=== PATIENT | male | born 1975 | race Caucasian/White ===

== ENCOUNTER 2018-12-02 15:45 | Inpatient (IN) | payer BC ==
[~2018-12-02] VITALS: Ht 175.3 cm; Wt 86.2 kg
[2018-12-02 19:08] LABS: BASOPHIL % 1.1 % (0-2); PLATELET COUNT 245 x10^3mcL (130-400)
[2018-12-02 19:11] LABS: CALCIUM 8.6 mg/dL (8.5-10.1); CHLORIDE SERUM 108 mmol/L (98-107); CREATININE SERUM 0.9 mg/dL (0.7-1.3); GFR1 > 60 mL/min; GLUCOSE SERUM 87 mg/dL (74-106); POTASSIUM SERUM 3.9 mmol/L (3.5-5.1); SODIUM SERUM 146 mmol/L (136-145)
[2018-12-02 19:15] LABS: ALBUMIN 3.7 g/dL (3.4-5.0); ALKALINE PHOSPHATASE 57 U/L (46-116); ALT/SGPT 43 U/L (16-63); AST/SGOT 41 U/L (15-37); BILIRUBIN TOTAL 0.45 mg/dL (0.20-1.00); MAGNESIUM 2.2 mg/dL (1.8-2.4); TOTAL PROTEIN, SERUM 7.7 g/dL (6.4-8.2)
[2018-12-02 23:54] LABS: UA SPECIFIC GRAVITY >=1.030 (1.005-1.035); microscopic required? YES; urine erythrocyte NEGATIVE (NEGATIVE)
[2018-12-03 00:10] LABS: AMPHETAMINE QUAL UR NONE DETECTED (See below)
[2018-12-03 00:32] LABS: CHOLESTEROL/HDL RATIO 1.8
[2018-12-03 00:51] VITALS: BP 136/97
[2018-12-03 04:26] LABS: BASOPHIL % 0.8 % (0-2); PLATELET COUNT 255 x10^3mcL (130-400)
[2018-12-03 04:27] LABS: RED CELL DISTRIBUTION WIDTH 16.3 % (11.5-14.5)
[2018-12-03 04:38] LABS: CALCIUM 7.8 mg/dL (8.5-10.1); CHLORIDE SERUM 107 mmol/L (98-107); GFR1 > 60 mL/min; GLUCOSE SERUM 92 mg/dL (74-106); POTASSIUM SERUM 3.7 mmol/L (3.5-5.1); SODIUM SERUM 142 mmol/L (136-145)
[2018-12-03 06:04] VITALS: BP 134/92
[2018-12-03 09:34] VITALS: BP 147/82
[2018-12-03 10:56] VITALS: Ht 175.3 cm; Wt 86.2 kg
== END 2018-12-03 11:10 | disposition left against medical advice (07) | DRG 193 ==
LOC: ED 15:45 → DU 23:11
PROVIDERS: Emergency Medicine; General Practice; ADMIT Internal Medicine
DX: J18.1 Lobar pneumonia, unspecified organism (principal); N17.0 Acute kidney failure with tubular necrosis; E87.0 Hyperosmolality and hypernatremia; F10.239 Alcohol dependence with withdrawal, unspecified; F10.229 Alcohol dependence with intoxication, unspecified; E86.0 Dehydration; R74.0 Nonspecific elevation of levels of transaminase and lactic acid dehydrogenase [LDH]; Y90.0 Blood alcohol level of less than 20 mg/100 ml; E78.5 Hyperlipidemia, unspecified; Z53.21 Procedure and treatment not carried out due to patient leaving prior to being seen by health care provider; F17.210 Nicotine dependence, cigarettes, uncomplicated; Z60.2 Problems related to living alone; Z68.28 Body mass index [BMI] 28.0-28.9, adult
CPT/HCPCS: 90658; G0480; J1956; J2060; J2405; J3411; J3475; J3490; J7030; Q0092

== ENCOUNTER 2019-10-13 16:07 | Inpatient (IN) | payer BC ==
[~2019-10-13] VITALS: Ht 175.3 cm; Wt 100.4 kg
[2019-10-13 18:11] LABS: BASOPHIL % 1.1 % (0-2); PLATELET COUNT 374 x10^3mcL (130-400)
[2019-10-13 18:28] LABS: RED CELL DISTRIBUTION WIDTH 15.7 % (11.5-14.5)
[2019-10-13 19:10] LABS: CALCIUM 10.5 mg/dL (8.5-10.1); CARBON DIOXIDE 23.3 mmol/L (21-32); CHLORIDE SERUM 100 mmol/L (98-107); CREATININE SERUM 1.1 mg/dL (0.7-1.3); GFR1 > 60 mL/min; GLUCOSE SERUM 91 mg/dL (74-106); POTASSIUM SERUM 3.6 mmol/L (3.5-5.1); SODIUM SERUM 141 mmol/L (136-145)
[2019-10-13 19:14] LABS: ALBUMIN 3.7 g/dL (3.4-5.0); ALKALINE PHOSPHATASE 63 U/L (46-116); ALT/SGPT 28 U/L (16-63); AST/SGOT 24 U/L (15-37); BILIRUBIN TOTAL 0.4 mg/dL (0.20-1.00); TOTAL PROTEIN, SERUM 7.5 g/dL (6.4-8.2)
[2019-10-13 20:39] LABS: MAGNESIUM 1.8 mg/dL (1.8-2.4); PHOSPHOROUS 3.7 mg/dL (2.5-4.9)
[2019-10-13 20:39] LABS: UA SPECIFIC GRAVITY 1.025 (1.005-1.035); microscopic required? YES; urine erythrocyte TRACE (NEGATIVE)
[2019-10-13 20:51] LABS: AMPHETAMINE QUAL UR NONE DETECTED (See below)
[2019-10-13 21:26] VITALS: BP 148/99
[2019-10-14 05:43] VITALS: BP 153/105
[2019-10-14 07:16] LABS: PLATELET COUNT 303 x10^3mcL (130-400)
[2019-10-14 07:27] LABS: RED CELL DISTRIBUTION WIDTH 15.8 % (11.5-14.5)
[2019-10-14 07:33] LABS: CALCIUM 8.8 mg/dL (8.5-10.1); CARBON DIOXIDE 25.7 mmol/L (21-32); CHLORIDE SERUM 105 mmol/L (98-107); CREATININE SERUM 1.1 mg/dL (0.7-1.3); GFR1 > 60 mL/min; GLUCOSE SERUM 81 mg/dL (74-106); MAGNESIUM 1.6 mg/dL (1.8-2.4); PHOSPHOROUS 4.2 mg/dL (2.5-4.9); POTASSIUM SERUM 3.9 mmol/L (3.5-5.1); SODIUM SERUM 140 mmol/L (136-145)
[2019-10-14 09:27] VITALS: BP 143/93
[2019-10-14 13:57] VITALS: BP 141/99
[2019-10-14 18:15] VITALS: BP 152/104
[2019-10-14 20:26] VITALS: BP 159/59
[2019-10-15 05:49] VITALS: BP 134/84
[2019-10-15 07:19] LABS: BASOPHIL % 0.2 % (0-2); PLATELET COUNT 246 x10^3mcL (130-400)
[2019-10-15 07:20] LABS: CARBON DIOXIDE 25.9 mmol/L (21-32); CHLORIDE SERUM 103 mmol/L (98-107); GFR1 > 60 mL/min; GLUCOSE SERUM 71 mg/dL (74-106); MAGNESIUM 1.8 mg/dL (1.8-2.4); PHOSPHOROUS 3.4 mg/dL (2.5-4.9); POTASSIUM SERUM 3.3 mmol/L (3.5-5.1); SODIUM SERUM 140 mmol/L (136-145)
[2019-10-15 07:29] LABS: RED CELL DISTRIBUTION WIDTH 15.7 % (11.5-14.5)
[2019-10-15 07:49] VITALS: BP 144/95
[2019-10-15 09:22] VITALS: BP 144/95
== END 2019-10-15 11:00 | disposition home or self-care (01) | DRG 91 ==
LOC: ED 16:07 → DU 20:06
PROVIDERS: Emergency Medicine; Family Medicine; ADMIT Internal Medicine
DX: G92 Toxic encephalopathy (principal); N17.0 Acute kidney failure with tubular necrosis; F10.239 Alcohol dependence with withdrawal, unspecified; E83.52 Hypercalcemia; E83.42 Hypomagnesemia; D75.1 Secondary polycythemia; T51.0X1A Toxic effect of ethanol, accidental (unintentional), initial encounter; F17.210 Nicotine dependence, cigarettes, uncomplicated; Y90.0 Blood alcohol level of less than 20 mg/100 ml; Z71.41 Alcohol abuse counseling and surveillance of alcoholic; Y92.89 Other specified places as the place of occurrence of the external cause; Z23 Encounter for immunization
CPT/HCPCS: 90658; 90732; G0378; G0480; J2060; J2405; J3411; J7030; Q0092

== ENCOUNTER 2020-11-15 22:56 | Inpatient (IN) | payer BC ==
[~2020-11-15] VITALS: Ht 172.7 cm; Wt 61.2 kg
[2020-11-15 23:17] VITALS: Ht 172.7 cm; Wt 61.2 kg
--- NOTE | 2020-11-16 03:21 | NUR ---
PT BIB SPOUSE C/O N/V S/P 6 DAYS OF ETOH BINGE DRINKING. PT IS ACTIVELY SHAKING AND VOMITING, ASKING FOR SOMETHING TO MAKE HIM FEEL BETTER. PT REPORTS THAT HIS LAST DRINK WAS "BEFORE GETTING HERE BUT I SAT OUTSIDE FOR LIKE FIVE HOURS". PT IS IN BED SHAKING ASKING FOR 7 UP. I INFORMED THE PT THAT THE MD MUST ASSESS HIM BEFORE I AM ABLE TO GIVE HIM ANYTHING--PT STS UNDERSTANDING. PT AAOX4, TAKING SHALLOW BREATHS AND SHAKING IN GURNEY AT LOWEST POSITION AND SIDE RAILSX2 FOR SAFETY
--- NOTE | 2020-11-16 03:26 | NUR ---
DR PELAEZ AT BEDSIDE FOR MSE
--- NOTE | 2020-11-16 04:32 | NUR ---
PT IN [facility] RESTING, EASY TO AROUSE, PT TOLERATED CLOCK AND WATCH HANDS DIPPER WELL--SEE EMAR FOR DETAILS
--- NOTE | 2020-11-16 05:30 | NUR ---
PT IN GURNEY RESTING, EASY TO AROUSE ASKING FOR SODA. NOTIFIED PT THAT MD MUST APPROVE PRIOR TO PROVIDING PT WITH SODA, PT EXPRESSED UNDERSTANDING. PT IN GURNEY RESTING, NAD NOTED, RESP E/U WITH GURNEY IN LOWEST POSITION FOR SAFETY AND SEIZURE PADS IN PLACE
--- NOTE | 2020-11-16 05:32 | NUR ---
PT IN [facility] RESTING, C/O SHAKING AND ASKING FOR SOMETHING TO HELP STOP SHAKING, MADE AWARE.
--- NOTE | 2020-11-16 06:33 | NUR ---
PT TOLERATED ATIVAN ADMIN WELL, MD BELL'D SODA FOR PT--PT PROVIDED WITH SODA. PT IN GURNEY AT LOWEST POSITION WITH SIDE RAILSX2 WITH SEIZURE PADS IN PLACE FOR SAFETY
--- NOTE | 2020-11-16 06:56 | NUR ---
PT TOLERATED CASSY COLLECTION WELL AND URINATED WITH URINE DIP. PT IN GURNEY C/O SHAKING AT THIS TIME AND STS THAT THE RESIDENT WILL ORDER SOMETHING FOR HIS COMPLAINT
--- NOTE | 2020-11-16 07:16 | NUR ---
REPORT GIVEN TO BEATRIZ TO ASSUME CARE OF PT AT THIS TIME
[2020-11-16 08:06] LABS: UA SPECIFIC GRAVITY >=1.030 (1.005-1.035); microscopic required? YES; urine erythrocyte NEGATIVE (NEGATIVE)
--- NOTE | 2020-11-16 08:44 | NUR ---
EMBRYOLOGY PROFESSOR AT BEDSIDE FOR BLOOD DRAW
--- NOTE | 2020-11-16 08:56 | NUR ---
PT SLEEPING AT THIS TIME
[2020-11-16 09:42] LABS: ALKALINE PHOSPHATASE 80 U/L (46-116); ALT/SGPT 153 U/L (16-63); AST/SGOT 130 U/L (15-37); BILIRUBIN TOTAL 0.7 mg/dL (0.20-1.00); CALCIUM 7.5 mg/dL (8.5-10.1); CARBON DIOXIDE 17.5 mmol/L (21-32); CHLORIDE SERUM 103 mmol/L (98-107); CREATININE SERUM 0.8 mg/dL (0.7-1.3); GFR1 > 60 mL/min; POTASSIUM SERUM 5.2 mmol/L (3.5-5.1); SODIUM SERUM 142 mmol/L (136-145); TOTAL PROTEIN, SERUM 6.8 g/dL (6.4-8.2)
[2020-11-16 09:44] LABS: ALBUMIN 3.2 g/dL (3.4-5.0)
[2020-11-16 09:45] LABS: GLUCOSE SERUM 49 mg/dL (74-106)
[2020-11-16 09:51] LABS: AMPHETAMINE QUAL UR NONE DETECTED (See below)
[2020-11-16 09:52] LABS: PHOSPHOROUS 2.9 mg/dL (2.5-4.9)
[2020-11-16 09:54] LABS: CHOLESTEROL/HDL RATIO 1.6
--- NOTE | 2020-11-16 09:58 | NUR ---
BS CHECK 92 ATIVAN GIVEN ORDERED
--- NOTE | 2020-11-16 10:15 | NUR ---
PT ADMIT TO TELE ROOM 235A GAVE REPORT TO HAILE
[2020-11-16 11:14] VITALS: BP 136/92
--- NOTE | 2020-11-16 11:15 | NUR ---
PT ADMITTED TO MED SURG VIA [facility] FROM ED. PT AOX4 ABLE TO MAKE NEEDS KNOWN. RR EVEN AND UNLABORED ON RA. PT ON TEL 55. STANDARD PRECAUTIONS. IV IN LAC 20G. PT DOES NOT KNOW WHEN LAST BM. SEIZURE PRECAUTIONS IN PLACE. CALL LIGHT WITHIN REACH. BED RAILS UP X2. BED LOCKED IN LOWEST POSITION. WILL CONTINUE TO MONITOR.
[2020-11-16 12:29] LABS: BASOPHIL % 0.4 % (0.2-1.5); PLATELET COUNT 228 x10^3mcL (152-348)
[2020-11-16 12:35] LABS: RED CELL DISTRIBUTION WIDTH 18.4 % (12.1-16.2)
[2020-11-16 13:24] VITALS: BP 136/92
--- NOTE | 2020-11-16 16:30 | NUR ---
PT REMOVED GOWN AND TELE BOX. PT STATED HE WAS READY TO LEAVE.MD NOTIFIED. MD IN ROOM AND EXPLAINED TO PATIENT THE RISKS OF LEAVING AMA WHILE WITHDRAWING FROM ALCOHOL. PT STILL WANTS TO LEAVE. PT SIGNED AMA FORUM. PT MARYANCE CALLED AND NOTIFED. PT WAITING FOR ESTEPHANIE TO PICK HIM UP.
[2020-11-16 16:34] VITALS: BP 119/71
--- NOTE | 2020-11-16 17:25 | NUR ---
PT WALKING AROUND IN LONG-TERM WITH BELONGS. WIRELINE FIELD OPERATOR TOOK PT TO HOSPITAL LOBBY SINCE PT WAS TRYIGN TO LEAVE BY HIMSELF. PT IV REMOVED FROM RAC INTACT. PT ID BAND REMOVED. PT LEFT MED SURG FLOOR UNDER OWN POWER ON RA.
== END 2020-11-16 16:36 | disposition left against medical advice (07) | DRG 894 ==
LOC: ED 22:56 → DU 11-16 06:20
PROVIDERS: Emergency Medicine; ADMIT Family Medicine; ATTEND Family Medicine
DX: F10.239 Alcohol dependence with withdrawal, unspecified (principal); Z20.822 Contact with and (suspected) exposure to COVID-19; Z53.29 Procedure and treatment not carried out because of patient's decision for other reasons; I10 Essential (primary) hypertension; Y90.9 Presence of alcohol in blood, level not specified; F41.9 Anxiety disorder, unspecified; Z82.3 Family history of stroke; Z82.49 Family history of ischemic heart disease and other diseases of the circulatory system
CPT/HCPCS: 82962; 83880; G0378; G0480; J2060; J2405; J3411; J3490; J7030